=== PATIENT | male | born 1945 | race Caucasian/White ===

== ENCOUNTER 2025-06-21 14:59 | Observation (INO) | payer MEDICARE, OTHER ==
[~2025-06-21] VITALS: Ht 162.6 cm; Wt 92.4 kg
[2025-06-21 15:53] LABS: IMMATURE GRANULOCYTE ABSOLUTE 0.01 K/uL (0-1); NUCLEATED RED BLOOD CELLS 0.0 % (0.0-0.19); PLATELET COUNT (AUTO) 184 K/uL (130-400); RED BLOOD CELL COUNT(AUTO) 4.70 MIL/uL (4.50-6.20); RED CELL DISTRIBUTION WIDTH 13.8 % (11.0-15.5); WHITE BLOOD COUNT (AUTO) 5.3 K/uL (4.8-10.8)
[2025-06-21 15:55] LABS: APPEARANCE,URINE CLEAR (CLEAR); GLUCOSE, URINE (UA) NEGATIVE (NEGATIVE); LEUKOCYTE ESTERASE ,URINE NEGATIVE Leu/uL (NEGATIVE); NITRATE,URINE NEGATIVE (NEGATIVE); OCCULT BLOOD,URINE NEGATIVE (NEGATIVE)
[2025-06-21 15:56] LABS: ADD UA MICROSCOPIC NO
[2025-06-21 16:02] LABS: CREATININE 1.0 mg/dL (0.5-1.3); GLOMERULAR FILTR. RATE CALC 77.0 mL/min (>90); GLUCOSE,RANDOM 98.0 mg/dL (70-105); SODIUM SERUM 141.0 mmol/L (136-145); UREA NITROGEN, BLOOD 22.0 mg/dL (7-18)
--- NOTE | 2025-06-21 16:11 | HMCIMG ---
EXAM: CR Chest, 1 View. CLINICAL HISTORY: sob COMPARISON: None provided. FINDINGS: LUNGS: The lungs show no infiltrate or other acute finding. PLEURAL SPACES: No evidence of pleural effusion or pneumothorax. MEDIASTINUM: Cardiac size and mediastinal contours within normal limits. BONES: No acute osseous abnormality. IMPRESSION: No acute cardiopulmonary pathology is evident. /[place]
--- NOTE | 2025-06-21 16:51 | ERN ---
ED Note History of Present Illness Stated Complaint: ABN EKG Chief Complaint: Abnormal Labs Time Seen by MD: 15:03 Time Seen by Midlevel: 15:04 Dictation: 79 male coming in for abnormal EKGs from the [place]. Patient states he was told his heart rate was low. You did not isn't taking any beta blockers. Denies having any chest pain or chest discomfort. Denies having any dizziness or lightheadedness. Vital signs are stable. Allergies: Coded Allergies: fluvastatin (Unverified Allergy, Unknown, 06/21/25) simvastatin (Unverified Allergy, Unknown, 06/21/25) Past Medical History Past Medical History: Alcoholism, High Cholesterol, Hypertension Surgical History: Other Review of System Dictation Constitutional: Negative for fever,chills, and weight loss Eyes: Negative for injury, pain,redness, and discharge ENT: Negative for injury,pain or swelling Cardiovascular: Negative for chest pain, palpitations, and edema Respiratory: Negative for shortness of breath, cough, and wheezing, Abdomen/GI: Negative for abdominal pain, nausea, vomiting, diarrhea, and constipation Back: Negative for injury and pain : Negative for injury, bleeding and discharge MS/Extremity: Negative for injury and deformity Skin: Negative for rash, and discoloration Neuro: Negative for headache, weakness, numbness, tingling, and seizure Psych: Negative for suicide ideation, homicidal ideation, and hallucinations Review of Systems: was completed Initial Vital Sign VS Vital Signs Date Time Temp Pulse Resp B/P (MAP) Pulse Ox O2 Delivery O2 Flow Rate FiO2 06/21/25 15:01 98.1 47 16 156/63 96 Room Air 0 06/21/25 15:34 21 Physical Exam Dictation General: awake, alert, NAD Head/Face: Normocephalic, atraumatic Eyes: PERRL, EOMI, vision at baseline ENT: oral cavity clear, TMs clear, no signs of infection Neck: Trachea midline, supple, no nuchal rigidity Cardiovascular: Bradycardia Respiratory: CTAB, no respiratory distress, No rales or wheezes Abdomen: Soft, non-tender, non-distended, normal bowel sounds, no guarding or rebound. Skin: Warm, dry, normal turgor, no rash MS/Extremity: Pulses equal, no cyanosis, neurovascular intact, FROM Neuro: COAx4, GCS 15, strength 5/5, CN 2-12 intact, normal cerebellar exam, normal gait, Psych: Normal behavior, mood, and affect normal Results (Laboratory/Radiology) Laboratory/Radiology Laboratory Tests Test 06/21/25 15:12 06/21/25 15:44 Urine Color LIGHT-YELLOW (YELLOW) Urine Appearance CLEAR (CLEAR) Urine pH 5.5 (5.0-8.0) Urine Specific [place] 1.024 (1.001-1.031) Urine Protein NEGATIVE mg/dL (NEGATIVE) Urine Glucose (UA) NEGATIVE mg/dL (NEGATIVE) Urine Ketones NEGATIVE mg/dL (NEGATIVE) Urine Occult Blood NEGATIVE (NEGATIVE) Urine Nitrate NEGATIVE (NEGATIVE) Urine Bilirubin NEGATIVE mg/dL (NEGATIVE) Urine Urobilinogen 0.2 mg/dL (0.2-1.0) Urine Leukocyte Esterase NEGATIVE Jovani/uL White Blood Count 5.3 K/uL (4.8-10.8) Red Blood Count 4.70 MIL/uL (4.50-6.20) Hemoglobin 14.3 g/dL (14.0-18.0) Hematocrit 42.8 % (42-54) Mean Corpuscular Volume 91.1 fL (79-99) Mean Corpuscular Hemoglobin 30.4 pg (27.0-33.0) Mean Corpuscular Hemoglobin Concent 33.4 g/dL (32.0-36.0) Red Cell Distribution Width 13.8 % (11.0-15.5) Platelet Count 184 K/uL (130-400) Mean Platelet Volume 10.8 fL (7.5-10.5) H Immature Granulocyte % (Auto) 0.2 % (0-1) Neutrophils (%) (Auto) 48.6 % (40.0-77.0) Lymphocytes (%) (Auto) 34.4 % (21.0-51.0) Monocytes (%) (Auto) 13.9 % (3.0-13.0) H Eosinophils (%) (Auto) 2.5 % (0.0-8.0) Basophils (%) (Auto) 0.4 % (0.0-5.0) Neutrophils # (Auto) 2.6 K/uL (1.8-7.7) Lymphocytes # (Auto) 1.8 K/uL (1.0-4.8) Monocytes # (Auto) 0.7 K/uL (0.1-1.0) Eosinophils # (Auto) 0.13 K/uL (0.00-0.70) Basophils # (Auto) 0.02 K/uL (0.00-0.20) Absolute Immature Granulocyte (auto 0.01 K/uL (0-1) Nucleated Red Blood Cells 0.0 % (0.0-0.19) Sodium Level 141 mmol/L (136-145) Potassium Level 4.1 mmol/L (3.5-5.1) Chloride Level 105 mmol/L (101-111) Carbon Dioxide Level 28 mmol/L (21-32) Blood Urea Nitrogen 22 mg/dL (7-18) H Creatinine 1.0 mg/dL (0.5-1.3) Glomerular Filtration Rate Calc 77 mL/min (>90) Random Glucose 98 mg/dL (70-105) Total Calcium 8.8 mg/dL (8.5-10.1) Magnesium Level 2.00 mg/dL (1.80-2.40) Troponin I High Sensitivity 19 ng/L (4-75) Labs Reviewed?: Yes EKG Comment: EKGs was done at 2:59 p.m.. Rate of 64, sinus rhythm, ventricular tried gentleman, borderline prolonged [place]. No ST elevations, ER X-RAY Comment: [place] [id number] [address] IMAGING REPORT Signed PATIENT: DELANEY TAVARES MR#: [id number] : 1945 SEX: M AGE: 79 LOCATION: [facility] ORDER 09 STATUS: REG ER REPORT#: [id number] SERVICE [id number] REASON: sob ORDERING PHYSICIAN: FRED CHAVEZ CNP PROCEDURE: CXR1VW - CHEST 1VW EXAM: CR Chest, 1 View. CLINICAL HISTORY: sob COMPARISON: None provided. FINDINGS: LUNGS: The lungs show no infiltrate or other acute finding. PLEURAL SPACES: No evidence of pleural effusion or pneumothorax. MEDIASTINUM: Cardiac size and mediastinal contours within normal limits. BONES: No acute osseous abnormality. IMPRESSION: No acute cardiopulmonary pathology is evident. /[place] DICTATED BY: TANI KENNEDY MD DATE: 06/21/251708 ELECTRONICALLY SIGNED BY: TANI KENNEDY MD DATE: 06/21/251708 ED Course ED Course Orders Procedure Category Date Status Time Cbc With Differential LAB 06/21/25 Complete 15:09 Basic Metabolic Panel LAB 06/21/25 Complete 15:09 Urinalysis Profile LAB 06/21/25 Complete 15:09 Troponin I High LAB 06/21/25 Complete Sensitivity 15:09 12 Lead Ekg Tracing- EKG 06/21/25 Logged Technical 15:09 Chest 1vw RAD 06/21/25 Resulted 15:09 Magnesium LAB 06/21/25 Complete 16:04 Vital Signs Date Time Temp Pulse Resp B/P (MAP) Pulse Ox O2 Delivery O2 Flow Rate FiO2 06/21/25 15:34 98.6 67 18 148/69 95 Room Air* 0 21 06/21/25 15:01 98.1 47 16 156/63 96 Room Air 0 Medical Decision Making MDM MDM: 79 male [facility] Patient states he was told his heart rate was low. You did not isn't taking any beta blockers. Denies having any chest pain or chest discomfort. Denies having any dizziness or lightheadedness. Vital signs are stable. Blood work is unremarkable. Merrill oreilly will be admitted for bradycardia, ventricular trigeminy and be evaluated by Cardiology. Spoke to hospitalist team. Educated to admit. Differential diagnosis: Electrolyte abnormality, ACS, Rationale: Tests considered and ordered secondary to shared decision making include: labs, ECG and radiology Previous outside records reviewed: Old ER visits. Risk of complication and/or morbidity or mortality of patient management: None Medications-Per medication reconciliation Need for hospitalization: Patient does meet criteria for hospitalization. Need for emergency major/minor surgery: No There are no social concerns with this patient. Prescription drug management Prescriptions will include symptomatic care Patient's prior external medical records from other ER visits were reviewed by me as indicated. Prior testing and results from previous visits were reviewed. Prior tests were taken into account with medical decision making and resource utilization, independent historian/historians were used to obtain complete medical history. I independently interpreted the test that were performed, results were reviewed by me and considered findings on radiology if ordered. Medical management and examination interpretation discussions were had by me with other qualified healthcare professionals as indicated for the patient's care. DX & DISP Disposition: Inpatient Decision to Admit Date: Jun 21, 2025 Decision to Admit Time: 16:51 Departure Impression: Primary Impression: Ventricular trigeminy Additional Impression: Bradycardia Condition: Stable Referrals: SELF,REFERRAL (PCP) Time of Disposition: 16:51 I have reviewed the case, and I agree with, Diagnosis and Plan FRED CHAVEZ CNP Jun 21, 2025 16:51
--- NOTE | 2025-06-21 17:15 | HP ---
[facility] HISTORY AND PHYSICAL Date of Service: Jun 21, 2025 Time of Service: 17:15 HISTORY OF PRESENT ILLNESS: 79 Year old male with past medical history of hypertension, hyperlipidemia who presented to the hospital secondary to bradycardia. Patient states he went to see his primary care provider in [place] who was evaluating him for hypertension. He was noted to be bradycardic with heart rate in the 30s to 40s. He was thereafter sent to [facility] [place] further evaluation. He currently denies any chest pain, shortness of breath, abdominal pain, nausea, vomiting. Denied any palpitations. Denied any episodes of syncope with activity. Patient is fairly active at home and walks around. He denies any syncope while walking. Denied any dizziness, falls. Denied any chest pain with exertion. He had Previously seen Dr. Mack four years ago and had a stress test performed. Since then he has not followed up with Cardiology. When seen at bedside patient's heart rate was in the 50s to 60s. Labs in the ER were notable for 5.3, hemoglobin was 14.3, platelet count was 184 K, sodium was 141, potassium was 4.1, creatinine was 1.0 REVIEW OF SYSTEMS CONSTITUTIONAL: Denies fevers, chills, or night sweats. No unintentional weight loss reported. NEUROLOGICAL: Denies headache, amaurosis fugax, motor weakness, sensory deficit, vertigo/spinning sensation, gait abnormalities, or tremors. ENT: No hearing loss, otalgia, otorrhea, rhinitis, rhinorrhea, hoarseness, or sore throat. CARDIOVASCULAR: Denies any exertional angina, dyspnea on exertion, orthopnea, paroxysmal nocturnal dyspnea, palpitations, life-threatening arrhythmias, claudication. PULMONARY: Denies any shortness of breath, cough, phlegm/sputum, hemoptysis, pleuritic chest pain. SLEEP: Denies morning headaches, daytime somnolence or napping. Denies difficulty falling asleep, staying asleep, waking from sleep. Denies knowledge of snoring. GASTROINTESTINAL: Denies any type of dysphagia to either liquids or solids. Denies nausea, vomiting, pyrosis, early satiety, abdominal pain, diarrhea, constipation, or changes in stool consistency or caliber. Denies coffee-ground emesis, hematemesis, hematochezia, or melanotic stools. GENITOURINARY: Denies frequency, urgency, nocturia, hematuria or incontinence (Storage/Irritative symptoms.) Low urinary stream, straining to void, urinary intermittency or hesitancy, splitting of the voiding stream, terminal dribbling. ENDOCRINOLOGIC: Denies polyuria, polydipsia, polyphagia or heat/cold intolerances. HEMATOLOGIC: Denies thrombophilia/previous clots, or coagulopathy/bleeding disorders. ONCOLOGIC: Denies personal history of malignancy. DERMATOLOGIC: Denies rashes or pruritus. PSYCHIATRIC: Denies any suicidal or homicidal ideation. Denies hallucinations. PAST MEDICAL HISTORY: Hypertension, hypertension , history of alcohol PAST SURGICAL HISTORY: Denied any Surgical history PAST SOCIAL HISTORY: Denied any smoking. He states he drinks around 3-4 beers per week denied any drug use FAMILY HISTORY: Denied any pertinent family history Coded Allergies: fluvastatin (Unverified Allergy, Unknown, 06/21/25) simvastatin (Unverified Allergy, Unknown, 06/21/25) PHYSICAL EXAM GENERAL APPEARANCE: The patient is awake, alert, and oriented, in no acute cardiopulmonary distress. NEUROLOGICAL: Cranial nerves II-XII grossly intact. Motor is 5/5 in bilateral upper and lower extremities proximal to distal. No sensory deficits. HEENT: Face is symmetric. Pupils are equal and reactive. Extraocular movements are intact. NECK: Supple. No JVD. No thyromegaly. No submental, submandibular, pre- /postauricular, occipital or supraclavicular lymphadenopathy. CHEST: Normal chest expansion. No Telemetry. LUNGS: Absence of any rales, rhonchi or any wheezing. CARDIOVASCULAR: Regular. S1 and S2 normal. No appreciable rubs, murmurs or gallops. ABDOMEN: Soft, nontender, and nondistended. There is no rebound, voluntary guarding, or rigidity. : Deferred. No Church. EXTREMITIES: Non-edematous and not cyanotic. No clubbing. Good capillary refill. SKIN: No skin breakdown. Vital Sign (Last 24 Hours) 06/21/25 15:34 Temp 98.6 Pulse 67 Resp 18 B/P (MAP) 148/69 Pulse Ox 95 O2 Delivery Room Air* O2 Flow Rate 0 FiO2 21 LABS: Laboratory: Test 06/21/25 15:44 06/21/25 15:12 Range/Units White Blood Count 5.3 4.8-10.8 K/uL Red Blood Count 4.70 4.50-6.20 MIL/uL Hemoglobin 14.3 14.0-18.0 g/dL Hematocrit 42.8 42-54 % Mean Corpuscular Volume 91.1 79-99 fL Mean Corpuscular Hemoglobin 30.4 27.0-33.0 pg Mean Corpuscular Hemoglobin Concent 33.4 32.0-36.0 g/dL Red Cell Distribution Width 13.8 11.0-15.5 % Platelet Count 184 130-400 K/uL Mean Platelet Volume 10.8 H 7.5-10.5 fL Immature Granulocyte % (Auto) 0.2 0-1 % Neutrophils (%) (Auto) 48.6 40.0-77.0 % Lymphocytes (%) (Auto) 34.4 21.0-51.0 % Monocytes (%) (Auto) 13.9 H 3.0-13.0 % Eosinophils (%) (Auto) 2.5 0.0-8.0 % Basophils (%) (Auto) 0.4 0.0-5.0 % Neutrophils # (Auto) 2.6 1.8-7.7 K/uL Lymphocytes # (Auto) 1.8 1.0-4.8 K/uL Monocytes # (Auto) 0.7 0.1-1.0 K/uL Eosinophils # (Auto) 0.13 0.00-0.70 K/uL Basophils # (Auto) 0.02 0.00-0.20 K/uL Absolute Immature Granulocyte (auto 0.01 0-1 K/uL Nucleated Red Blood Cells 0.0 0.0-0.19 % Sodium Level 141 136-145 mmol/L Potassium Level 4.1 3.5-5.1 mmol/L Chloride Level 105 101-111 mmol/L Carbon Dioxide Level 28 21-32 mmol/L Blood Urea Nitrogen 22 H 7-18 mg/dL Creatinine 1.0 0.5-1.3 mg/dL Glomerular Filtration Rate Calc 77 >90 mL/min Random Glucose 98 70-105 mg/dL Total Calcium 8.8 8.5-10.1 mg/dL Magnesium Level 2.00 1.80-2.40 mg/dL Troponin I High Sensitivity 19 4-75 ng/L Urine Color LIGHT-YELLOW YELLOW Urine Appearance CLEAR CLEAR Urine pH 5.5 5.0-8.0 Urine Specific [place] 1.024 1.001-1.031 Urine Protein NEGATIVE NEGATIVE mg/dL Urine Glucose (UA) NEGATIVE NEGATIVE mg/dL Urine Ketones NEGATIVE NEGATIVE mg/dL Urine Occult Blood NEGATIVE NEGATIVE Urine Nitrate NEGATIVE NEGATIVE Urine Bilirubin NEGATIVE NEGATIVE mg/dL Urine Urobilinogen 0.2 0.2-1.0 mg/dL Urine Leukocyte Esterase NEGATIVE NEGATIVE Jovani/uL DIAGNOSTICS / RADIOLOGY: [ ] ASSESSMENT: Sinus rhythm with frequent PVCs (trigeminy) Hypertension Hyperlipidemia History of sleep apnea History of alcohol use PLAN: -patient to be admitted to [facility] -in reference to frequent PVCs. Patient to be monitored on telemetry. Obtain echocardiogram. Keep potassium greater than four and magnesium greater than two. The patient currently does not have any chest pain. We will request consultation with Cardiology. Check TSH. -obtain patient's home medications which will be reconciled once available -continue patient on home CPAP -further orders per hospitalization course. Advanced Care Planning Which of the following were discussed: Hospice care: Yes __ No _x_ Therapeutic options: Yes __ No __ Advance directives: Yes __ No __ Other discussions: Discussed with who?: patient (Patient, family or surrogates) Voluntary nature of this service was explained to the patient? Yes _x_ No __ Amount of time spent: 25 minutes KATINA Newman MD, MD Jun 21, 2025 17:15
[2025-06-21] MEDS ORDERED: PoTASSium chloRIDE 20MEQ ER 20 MEQ ERTAB PO PRN (17:30)
[2025-06-21] MEDS ORDERED: MAGNESIUM 2GM PREMIX 50ML 50 ML IV PRN (17:30)
[2025-06-21] MEDS ORDERED: PoTASSium chl 10% ELIXIR 20MEQ 20 MEQ/15 ML UDCUP PO PRN (17:30)
--- NOTE | 2025-06-21 18:06 | EKG ---
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
--- NOTE | 2025-06-21 18:12 | CONS ---
[facility] CARDIOLOGY CONSULTATION NOTE Date Patient Seen: Jun 21, 2025 Time of Visit: 18:09 Reason for Consultation: [ bradycardia, PVCs] History of Present Illness: [ 79 Year old male with past medical history of hypertension, hyperlipidemia who presented to the hospital secondary to bradycardia. Patient states he went to see his primary care provider in [place] who was evaluating him for hypertension. He was noted to be bradycardic with heart rate in the 30s to 40s. However, patient is noted to have frequent PVCs as well so pulse oximeter readings may underestimate the true pulse. He currently denies any chest pain, shortness of breath, abdominal pain, nausea, vomiting. Denied any palpitations. Denied any episodes of syncope with activity. Patient is fairly active at home and walks around. He denies any syncope while walking. Denied any dizziness, falls. Denied any chest pain with exertion. He had Previously seen Dr. Mack four years ago and had a stress test performed. Since then he has not followed up with Cardiology. When seen at bedside patient's heart rate was in the 50s to 60s. Labs in the ER were notable for 5.3, hemoglobin was 14.3, platelet count was 184 K, sodium was 141, potassium was 4.1, creatinine was 1.0 ] Past Medical History: [ ] Past Surgical History: [ ] Family History: [ ] Social History: [ ] Habits: [Never] smoker. [Denies] alcohol consumption. [Denies] illicit drug use Home Meds: [ ] Current Meds: [ ] Review of Systems: CONST: [No fever, fatigue, or weight changes.] EYES: [No recent vision problems.] ENT: [No congestion, ear pain, or sore throat.] C/V: [No chest pain, palpitations, or edema.] RESP: [No cough, congestion, wheezing or shortness of breath.] GI: [No abdominal pain, nausea, vomiting, constipation, or diarrhea.] : [No incontinence or dysuria.] SKIN: [No rash.] NEURO: [No headache, focal numbness or weakness, dizziness, or seizures.] PSYCH: [No depression or anxiety.] HEME: [No abnormal bruising or bleeding.] LYMPH: [No swollen glands.] Physical Examination: GENERAL: [No acute distress.] HEAD: [Normal with no signs of head trauma.] EYES: [PERRLA, EOMI, conjunctiva and sclera normal.] ENT: [Hearing grossly intact, normal oropharynx.] NECK: [Supple without JVD. There is no tenderness, lymphadenopathy, or masses. No thyromegaly. Normal carotid upstrokes without bruits.] LUNGS: [Clear breath sounds bilaterally. There are right basilar rales one third of the way up the chest. No wheezes, or rhonchi.] HEART: [Normal rate and rhythm. Normal S1 and S2 without mumurs, gallop or rub.] VASC: [Peripheral pulses +2 bilaterally.] ABD: [Bowel sounds normal, soft, nontender, no masses, no organomegaly. No audible bruits.] : [Not examined] LYMPH: [No lymphadenopathy noted.] EXT: [No clubbing, cyanosis or edema.] SKIN: [No rashes or lesions noted.] NEURO: [Awake, alert, and oriented x3. No focal sensory or strength deficits noted.] Vital Signs (last 8hr) Date Time Temp Pulse Resp B/P (MAP) Pulse Ox O2 Delivery O2 Flow Rate FiO2 06/21/25 17:59 98.6 66 18 139/88 96 Room Air* 0 21 06/21/25 15:34 98.6 67 18 148/69 95 Room Air* 0 21 06/21/25 15:01 98.1 47 16 156/63 96 Room Air 0 Laboratory: [ ] Hematology Labs: Test 06/21/25 15:44 Range/Units White Blood Count 5.3 4.8-10.8 K/uL Red Blood Count 4.70 4.50-6.20 MIL/uL Hemoglobin 14.3 14.0-18.0 g/dL Hematocrit 42.8 42-54 % Mean Corpuscular Volume 91.1 79-99 fL Mean Corpuscular Hemoglobin 30.4 27.0-33.0 pg Mean Corpuscular Hemoglobin Concent 33.4 32.0-36.0 g/dL Red Cell Distribution Width 13.8 11.0-15.5 % Platelet Count 184 130-400 K/uL Mean Platelet Volume 10.8 H 7.5-10.5 fL Immature Granulocyte % (Auto) 0.2 0-1 % Neutrophils (%) (Auto) 48.6 40.0-77.0 % Lymphocytes (%) (Auto) 34.4 21.0-51.0 % Monocytes (%) (Auto) 13.9 H 3.0-13.0 % Eosinophils (%) (Auto) 2.5 0.0-8.0 % Basophils (%) (Auto) 0.4 0.0-5.0 % Neutrophils # (Auto) 2.6 1.8-7.7 K/uL Lymphocytes # (Auto) 1.8 1.0-4.8 K/uL Monocytes # (Auto) 0.7 0.1-1.0 K/uL Eosinophils # (Auto) 0.13 0.00-0.70 K/uL Basophils # (Auto) 0.02 0.00-0.20 K/uL Absolute Immature Granulocyte (auto 0.01 0-1 K/uL Nucleated Red Blood Cells 0.0 0.0-0.19 % Chemistry Labs: Test 06/21/25 15:44 Range/Units Sodium Level 141 136-145 mmol/L Potassium Level 4.1 3.5-5.1 mmol/L Chloride Level 105 101-111 mmol/L Carbon Dioxide Level 28 21-32 mmol/L Blood Urea Nitrogen 22 H 7-18 mg/dL Creatinine 1.0 0.5-1.3 mg/dL Glomerular Filtration Rate Calc 77 >90 mL/min Random Glucose 98 70-105 mg/dL Hemoglobin A1c 5.7 4.0-6.0 % Estimated Average Glucose (eAG) 117 70-126 mg/dL Total Calcium 8.8 8.5-10.1 mg/dL Magnesium Level 2.00 1.80-2.40 mg/dL Troponin I High Sensitivity 19 4-75 ng/L Thyroid Stimulating Hormone (TSH) 4.09 H 0.36-3.74 uIU/mL Diagnostics / Radiology: [Copy/Paste Echos/Imaging Report here] Assessment: [#PVCs #Bradycardia -plan for K>4, Mg>2 -echo ordered -tele ordered -Trop neg -TSH high, sent for Free T4, Free T3 ] FORREST ESCOBAR MD Jun 21, 2025 18:12
[2025-06-21] MEDS: FAMOTIDINE 20MG VIAL IV SCH (20:33)
[2025-06-21] MEDS ORDERED: SALM1CAP3 PO (23:30)
[2025-06-21] MEDS ORDERED: AMLO-257 PO (23:30)
[2025-06-21] MEDS ORDERED: TOPI-257 PO ×2 (23:30→23:32)
[2025-06-21] MEDS ORDERED: ASPI-1197 PO (23:30)
[2025-06-21] MEDS ORDERED: CHOL500051 PO (23:30)
[2025-06-21] MEDS ORDERED: ATOR10 PO (23:30)
[2025-06-21 23:50] VITALS: BP 140/72; PULSE 48; RESP 14; RESP 18; TEMP 98; O2SAT 96
[2025-06-22 02:41] VITALS: PULSE 50; RESP 18; O2SAT 96
[2025-06-22 03:34] VITALS: O2SAT 96
[2025-06-22 04:26] VITALS: BP 133/69; PULSE 47; RESP 18; TEMP 97.9
[2025-06-22 06:45] LABS: IMMATURE GRANULOCYTE ABSOLUTE 0.01 K/uL (0-1); NUCLEATED RED BLOOD CELLS 0.0 % (0.0-0.19); PLATELET COUNT (AUTO) 176 K/uL (130-400); RED BLOOD CELL COUNT(AUTO) 4.61 MIL/uL (4.50-6.20); RED CELL DISTRIBUTION WIDTH 13.8 % (11.0-15.5); WHITE BLOOD COUNT (AUTO) 5.3 K/uL (4.8-10.8)
[2025-06-22 06:56] LABS: CREATININE 1.0 mg/dL (0.5-1.3); GLOMERULAR FILTR. RATE CALC 77.0 mL/min (>90); GLUCOSE,RANDOM 90.0 mg/dL (70-105); SODIUM SERUM 140.0 mmol/L (136-145); UREA NITROGEN, BLOOD 18.0 mg/dL (7-18)
--- NOTE | 2025-06-22 07:17 | PN ---
[facility] CARDIOLOGY PROGRESS NOTE Date Patient Seen: Jun 22, 2025 Time of Visit: 07:15 Interval History: [ Frequent PVCs in trigeminy pattern HR 48-60 bpm] Physical Examination: GENERAL: [No acute distress.] HEAD: [Normal with no signs of head trauma.] EYES: [PERRLA, EOMI, conjunctiva and sclera normal.] ENT: [Hearing grossly intact, normal oropharynx.] NECK: [Supple without JVD. There is no tenderness, lymphadenopathy, or masses. No thyromegaly. Normal carotid upstrokes without bruits.] LUNGS: [Clear breath sounds bilaterally. There are right basilar rales one third of the way up the chest. No wheezes, or rhonchi.] HEART: [Normal rate and rhythm. Normal S1 and S2 without mumurs, gallop or rub.] VASC: [Peripheral pulses +2 bilaterally.] ABD: [Bowel sounds normal, soft, nontender, no masses, no organomegaly. No audible bruits.] : [Not examined] LYMPH: [No lymphadenopathy noted.] EXT: [No clubbing, cyanosis or edema.] SKIN: [No rashes or lesions noted.] NEURO: [Awake, alert, and oriented x3. No focal sensory or strength deficits noted.] Laboratory: [ ] Hematology Labs: Test 06/22/25 06:38 Range/Units White Blood Count 5.3 4.8-10.8 K/uL Red Blood Count 4.61 4.50-6.20 MIL/uL Hemoglobin 14.0 14.0-18.0 g/dL Hematocrit 42.0 42-54 % Mean Corpuscular Volume 91.1 79-99 fL Mean Corpuscular Hemoglobin 30.4 27.0-33.0 pg Mean Corpuscular Hemoglobin Concent 33.3 32.0-36.0 g/dL Red Cell Distribution Width 13.8 11.0-15.5 % Platelet Count 176 130-400 K/uL Mean Platelet Volume 10.7 H 7.5-10.5 fL Immature Granulocyte % (Auto) 0.2 0-1 % Neutrophils (%) (Auto) 58.8 40.0-77.0 % Lymphocytes (%) (Auto) 27.5 21.0-51.0 % Monocytes (%) (Auto) 10.4 3.0-13.0 % Eosinophils (%) (Auto) 2.5 0.0-8.0 % Basophils (%) (Auto) 0.6 0.0-5.0 % Neutrophils # (Auto) 3.1 1.8-7.7 K/uL Lymphocytes # (Auto) 1.5 1.0-4.8 K/uL Monocytes # (Auto) 0.6 0.1-1.0 K/uL Eosinophils # (Auto) 0.13 0.00-0.70 K/uL Basophils # (Auto) 0.03 0.00-0.20 K/uL Absolute Immature Granulocyte (auto 0.01 0-1 K/uL Nucleated Red Blood Cells 0.0 0.0-0.19 % Chemistry Labs: Test 06/22/25 06:38 06/21/25 15:44 Range/Units Sodium Level 140 136-145 mmol/L Potassium Level 4.0 3.5-5.1 mmol/L Chloride Level 105 101-111 mmol/L Carbon Dioxide Level 29 21-32 mmol/L Blood Urea Nitrogen 18 7-18 mg/dL Creatinine 1.0 0.5-1.3 mg/dL Glomerular Filtration Rate Calc 77 >90 mL/min Random Glucose 90 70-105 mg/dL Total Calcium 8.7 8.5-10.1 mg/dL Hemoglobin A1c 5.7 4.0-6.0 % Estimated Average Glucose (eAG) 117 70-126 mg/dL Magnesium Level 2.00 1.80-2.40 mg/dL Troponin I High Sensitivity 19 4-75 ng/L Thyroid Stimulating Hormone (TSH) 4.09 H 0.36-3.74 uIU/mL Free Thyroxine (T4) Direct 0.79 0.76-1.46 ng/dL Free Triiodothyronine (T3) pg/mL 2.40 2.18-3.98 pg/mL Diagnostics / Radiology: [Copy/Paste Echos/Imaging Report here] Impression and Plan: [ #PVCs #Bradycardia, asymptomatic -plan for K>4, Mg>2 -echo ordered -tele ordered. PVCs, trigeminy HR 48-62 bpm -Trop neg -TSH high, normal Free T4, Free T3 -plan for outpatient heart monitor to determine PVC burden if echo is benign -Reports normal C four years ago with Dr Mack ] FORREST ESCOBRA MD Jun 22, 2025 07:17
[2025-06-22 07:59] VITALS: BP 136/65; PULSE 49; RESP 18; TEMP 97.8
[2025-06-22 08:00] VITALS: O2SAT 96
--- NOTE | 2025-06-22 09:16 | HMCSR ---
APPROVED REPORT EXAM: Two-dimensional and M-mode echocardiogram with Doppler and color Doppler. INDICATION ICD: I49.3 Premature ventricular complexes 2D Dimensions RVDd 4.5 cm LVEF(%) 66.0 (>50%) LVED Vol(simp.) 114.0 mL IVSd 1.1 (0.7-1.1cm) FS(%) 36 % LVES Vol(simp.) 50.0 mL LVDd 5.0 (3.8-5.6cm) LA (2D) 4.8 (1.6-4.0cm) LVEF(%, simp.) 56 % PWd 0.9 (0.7-1.1cm) Ao Root(2D) 3.8 (2.0-3.7cm) LA ESV INDEX (BP) 55.24 mL/m2 IVSs 1.5 cm LVOT diam 2.1 (1.8-2.4cm) LVDs 3.2 (2.5-4.0cm) PWs 1.5 cm Deformation Strain Apical 4 -11.0 % Apical 2 -12.1 % Apical 3 -14.4 % Global Strain -12.5 % M-Mode Dimensions EPSS 1.1 cm LA (MM) 4.6 (1.6-4.0cm) Ao Root(MM) 3.3 (2.0-3.7cm) Aortic Valve AoV Vmax 1.4 m/s Ao Peak GR 7.8 mmHg LVOT Vmax 1.1 m/s AoV VTI 0.3 m Ao Mean GR 4.0 mmHg LVOT VTI 0.26 m CONCEPCION (VMAX) 2.82 cm2 CONCEPCION (VTI) 2.9 cm2 Mitral Valve MV E Vmax 76.7 cm/s DECEL Time 222 ms MV A Vmax 59.7 cm/s P 1/2 T 69 ms E/A ratio 1.3 MVA (PHT) 3.2 cm2 TDI E/E' Medial 13.2 E/E' Lateral 8.6 Medial E' Peak V 5.80 cm/s Lateral E' Peak V 8.91 cm/s Pulmonary Valve PV Vmax 0.8 m/s PI End Deanna. Abram 112.8 cm/s PV Mean GR 1.3 mmHg PV Peak GR 2.4 mmHg Tricuspid Valve TR Vmax 2.7 m/s RAP (EST) 8 mmHg RVSP 36.9 mmHg TR Peak GR 28.9 mmHg Left Ventricle The left ventricle is normal size. GLS -13.0% There is normal left ventricular wall thickness. The LVEF is > 55%. The LV diastolic function was unable to be assessed due to atrial arrhythmia. Right Ventricle The right ventricle is moderately dilated. The right ventricular systolic function is normal. Atria The left atrium is severely dilated. LASVI 55mL/m The right atrium is borderline dilated. Aortic Valve The aortic valve is trileaflet normal in structure. No aortic regurgitation is present. There is no aortic valvular stenosis. Mitral Valve The mitral valve is normal in structure. There is no mitral valve regurgitation noted. There is no mitral valve stenosis. Tricuspid Valve The tricuspid valve is normal in structure. There is mild to moderate tricuspid valve regurgitation noted. Pulmonic Valve The pulmonary valve is normal in structure. There is trace of pulmonic valvular regurgitation. Great Vessels The aortic root is normal in size. IVC is not well visualized. Pericardium There is no pericardial effusion. Other Information Quality : Adequate Conclusion The left ventricle is normal size. The LVEF is > 55%. The LV diastolic function was unable to be assessed due to atrial arrhythmia. The right ventricle is moderately dilated. The right ventricular systolic function is normal. The left atrium is severely dilated. LASVI 55mL/m The right atrium is borderline dilated. No valvular pathology. There is no pericardial effusion.
[2025-06-22 12:26] VITALS: BP 139/67; PULSE 62; RESP 18; TEMP 97.6
--- NOTE | 2025-06-22 14:19 | DS ---
Discharge Summary Hospital Course Summary: Patient is a 79-year-old male with past medical history of hypertension hyperlipidemia who presented for evaluation of bradycardia after being found to have heart rates in 30s to 40s during a primary care visit. Chest pain, shortness of breath, palpitations, dizziness, syncope, falls, or exertional symptoms. He reports being active at home and ambulatory without limitations. He previously saw a cardiologist4 years ago but has not followed up since then. On arrival, he remained hemodynamically stable and asymptomatic. Cardiology was consulted and evaluation revealed frequent PVCs with trigeminy pattern. An echocardiogram was performed and showed no acute abnormalities. Cardiology determined the patient was stable for discharge and recommended outpatient cardiology follow up to assess PVC burden and further management. The patient was discharged home in stable condition with instruction to monitor for worsening symptoms and to attend scheduled outpatient appointment with Cardiology in 1-2 days. Unit Educator(s): CONSULTATION REPORT Name: DELANEY TAVARES Ismael Acct: [id number] MR: [id number] : 1945 Admit Date: 06/21/25 FORREST ESCOBAR MD [address] [address] [facility] CARDIOLOGY CONSULTATION NOTE Date Patient Seen: Jun 21, 2025 Time of Visit: 18:09 Reason for Consultation: [ bradycardia, PVCs] History of Present Illness: [ 79 Year old male with past medical history of hypertension, hyperlipidemia who presented to the hospital secondary to bradycardia. Patient states he went to see his primary care provider in [place] who was evaluating him for hypertension. He was noted to be bradycardic with heart rate in the 30s to 40s. However, patient is noted to have frequent PVCs as well so pulse oximeter readings may underestimate the true pulse. He currently denies any chest pain, shortness of breath, abdominal pain, nausea, vomiting. Denied any palpitations. Denied any episodes of syncope with activity. Patient is fairly active at home and walks around. He denies any syncope while walking. Denied any dizziness, falls. Denied any chest pain with exertion. He had Previously seen Dr. Mack four years ago and had a stress test performed. Since then he has not followed up with Cardiology. When seen at bedside patient's heart rate was in the 50s to 60s. Labs in the ER were notable for 5.3, hemoglobin was 14.3, platelet count was 184 K, sodium was 141, potassium was 4.1, creatinine was 1.0 ] Past Medical History: [ ] Past Surgical History: [ ] Family History: [ ] Social History: [ ] Habits: [Never] smoker. [Denies] alcohol consumption. [Denies] illicit drug use Home Meds: [ ] Current Meds: [ ] Review of Systems: CONST: [No fever, fatigue, or weight changes.] EYES: [No recent vision problems.] ENT: [No congestion, ear pain, or sore throat.] C/V: [No chest pain, palpitations, or edema.] RESP: [No cough, congestion, wheezing or shortness of breath.] GI: [No abdominal pain, nausea, vomiting, constipation, or diarrhea.] : [No incontinence or dysuria.] SKIN: [No rash.] NEURO: [No headache, focal numbness or weakness, dizziness, or seizures.] PSYCH: [No depression or anxiety.] HEME: [No abnormal bruising or bleeding.] LYMPH: [No swollen glands.] Physical Examination: GENERAL: [No acute distress.] HEAD: [Normal with no signs of head trauma.] EYES: [PERRLA, EOMI, conjunctiva and sclera normal.] ENT: [Hearing grossly intact, normal oropharynx.] NECK: [Supple without JVD. There is no tenderness, lymphadenopathy, or masses. No thyromegaly. Normal carotid upstrokes without bruits.] LUNGS: [Clear breath sounds bilaterally. There are right basilar rales one third of the way up the chest. No wheezes, or rhonchi.] HEART: [Normal rate and rhythm. Normal S1 and S2 without mumurs, gallop or rub.] VASC: [Peripheral pulses +2 bilaterally.] ABD: [Bowel sounds normal, soft, nontender, no masses, no organomegaly. No audible bruits.] : [Not examined] LYMPH: [No lymphadenopathy noted.] EXT: [No clubbing, cyanosis or edema.] SKIN: [No rashes or lesions noted.] NEURO: [Awake, alert, and oriented x3. No focal sensory or strength deficits noted.] Vital Signs (last 8hr) Date Time Temp Pulse Resp B/P (MAP) Pulse Ox O2 Delivery O2 Flow Rate FiO2 11/20/25 17:59 98.6 66 18 139/88 96 Room Air* 0 21 06/21/25 15:34 98.6 67 18 148/69 95 Room Air* 0 21 06/21/25 15:01 98.1 47 16 156/63 96 Room Air 0 Laboratory: [ ] Hematology Labs: Test 06/21/25 15:44 Range/Units White Blood Count 5.3 4.8-10.8 K/uL Red Blood Count 4.70 4.50-6.20 MIL/uL Hemoglobin 14.3 14.0-18.0 g/dL Hematocrit 42.8 42-54 % Mean Corpuscular Volume 91.1 79-99 fL Mean Corpuscular Hemoglobin 30.4 27.0-33.0 pg Mean Corpuscular Hemoglobin Concent 33.4 32.0-36.0 g/dL Red Cell Distribution Width 13.8 11.0-15.5 % Platelet Count 184 130-400 K/uL Mean Platelet Volume 10.8 H 7.5-10.5 fL Immature Granulocyte % (Auto) 0.2 0-1 % Neutrophils (%) (Auto) 48.6 40.0-77.0 % Lymphocytes (%) (Auto) 34.4 21.0-51.0 % Monocytes (%) (Auto) 13.9 H 3.0-13.0 % Eosinophils (%) (Auto) 2.5 0.0-8.0 % Basophils (%) (Auto) 0.4 0.0-5.0 % Neutrophils # (Auto) 2.6 1.8-7.7 K/uL Lymphocytes # (Auto) 1.8 1.0-4.8 K/uL Monocytes # (Auto) 0.7 0.1-1.0 K/uL Eosinophils # (Auto) 0.13 0.00-0.70 K/uL Basophils # (Auto) 0.02 0.00-0.20 K/uL Absolute Immature Granulocyte (auto 0.01 0-1 K/uL Nucleated Red Blood Cells 0.0 0.0-0.19 % Chemistry Labs: Test 06/21/25 15:44 Range/Units Sodium Level 141 136-145 mmol/L Potassium Level 4.1 3.5-5.1 mmol/L Chloride Level 105 101-111 mmol/L Carbon Dioxide Level 28 21-32 mmol/L Blood Urea Nitrogen 22 H 7-18 mg/dL Creatinine 1.0 0.5-1.3 mg/dL Glomerular Filtration Rate Calc 77 >90 mL/min Random Glucose 98 70-105 mg/dL Hemoglobin A1c 5.7 4.0-6.0 % Estimated Average Glucose (eAG) 117 70-126 mg/dL Total Calcium 8.8 8.5-10.1 mg/dL Magnesium Level 2.00 1.80-2.40 mg/dL Troponin I High Sensitivity 19 4-75 ng/L Thyroid Stimulating Hormone (TSH) 4.09 H 0.36-3.74 uIU/mL Diagnostics / Radiology: [Copy/Paste Echos/Imaging Report here] Assessment: [#PVCs #Bradycardia -plan for K>4, Mg>2 -echo ordered -tele ordered -Trop neg -TSH high, sent for Free T4, Free T3 ] FORREST ESCOBAR MD Jun 21, 2025 18:12 Electronically Signed by: FORREST ESCOBAR MD06/21/25 181 Electronically Co-Signed by: Procedure(s): [place] [address] IMAGING REPORT Signed PATIENT: DELANEY TAVARES MR#: [id number] : 1945 SEX: M AGE: 79 LOCATION: [facility] ORDER 1510 STATUS: REG REPORT#: [id number] SERVICE 1509 REASON: sob ORDERING PHYSICIAN: FRED CHAVEZ CNP PROCEDURE: CXR1VW - CHEST 1VW EXAM: CR Chest, 1 View. CLINICAL HISTORY: sob COMPARISON: None provided. FINDINGS: LUNGS: The lungs show no infiltrate or other acute finding. PLEURAL SPACES: No evidence of pleural effusion or pneumothorax. MEDIASTINUM: Cardiac size and mediastinal contours within normal limits. BONES: No acute osseous abnormality. IMPRESSION: No acute cardiopulmonary pathology is evident. /[place] DICTATED BY: TANI KENNEDY MD DATE: 06/21/25 234 ELECTRONICALLY SIGNED BY: TANI KENNEDY MD DATE: 06/21/251708 [place] [id number] [place] [id number] IMAGING REPORT Signed PATIENT: DELANEY TAVARES MR#: [id number] : 1945 SEX: M AGE: 79 LOCATION: [facility] ORDER 14 STATUS: ADM IN REPORT#: [id number] SERVICE 0000 REASON: PVC's, bradycardia ORDERING PHYSICIAN: KATINA PERRY MD PROCEDURE: ECHO CMP - ECHO 2-D COMPLETE APPROVED REPORT EXAM: Two-dimensional and M-mode echocardiogram with Doppler and color Doppler. INDICATION ICD: I49.3 Premature ventricular complexes 2D Dimensions RVDd 4.5 cm LVEF(%) 66.0 (>50%) LVED Vol(simp.) 114.0 mL IVSd 1.1 (0.7-1.1cm) FS(%) 36 % LVES Vol(simp.) 50.0 mL LVDd 5.0 (3.8-5.6cm) LA (2D) 4.8 (1.6-4.0cm) LVEF(%, simp.) 56 % PWd 0.9 (0.7-1.1cm) Ao Root(2D) 3.8 (2.0-3.7cm) LA ESV INDEX (BP) 55.24 mL/m2 IVSs 1.5 cm LVOT diam 2.1 (1.8-2.4cm) LVDs 3.2 (2.5-4.0cm) PWs 1.5 cm Deformation Strain Apical 4 -11.0 % Apical 2 -12.1 % Apical 3 -14.4 % Global Strain -12.5 % M-Mode Dimensions EPSS 1.1 cm LA (MM) 4.6 (1.6-4.0cm) Ao Root(MM) 3.3 (2.0-3.7cm) Aortic Valve AoV Vmax 1.4 m/s Ao Peak GR 7.8 mmHg LVOT Vmax 1.1 m/s AoV VTI 0.3 m Ao Mean GR 4.0 mmHg LVOT VTI 0.26 m CONCEPCION (VMAX) 2.82 cm2 CONCEPCION (VTI) 2.9 cm2 Mitral Valve MV E Vmax 76.7 cm/s DECEL Time 222 ms MV A Vmax 59.7 cm/s P 1/2 T 69 ms E/A ratio 1.3 MVA (PHT) 3.2 cm2 TDI E/E' Medial 13.2 E/E' Lateral 8.6 Medial E' Peak V 5.80 cm/s Lateral E' Peak V 8.91 cm/s Pulmonary Valve PV Vmax 0.8 m/s PI End Deanna. Abram 112.8 cm/s PV Mean GR 1.3 mmHg PV Peak GR 2.4 mmHg Tricuspid Valve TR Vmax 2.7 m/s RAP (EST) 8 mmHg RVSP 36.9 mmHg TR Peak GR 28.9 mmHg Left Ventricle The left ventricle is normal size. GLS -13.0% There is normal left ventricular wall thickness. The LVEF is > 55%. The LV diastolic function was unable to be assessed due to atrial arrhythmia. Right Ventricle The right ventricle is moderately dilated. The right ventricular systolic funct ion is normal. Atria The left atrium is severely dilated. LASVI 55mL/m The right atrium is borderline dilated. Aortic Valve The aortic valve is trileaflet normal in structure. No aortic regurgitation is present. There is no aortic valvular stenosis. Mitral Valve The mitral valve is normal in structure. There is no mitral valve regurgitation noted. There is no mitral valve stenosis. Tricuspid Valve The tricuspid valve is normal in structure. There is mild to moderate tricuspid valve regurgitation noted. Pulmonic Valve The pulmonary valve is normal in structure. There is trace of pulmonic valvular regurgitation. Great Vessels The aortic root is normal in size. IVC is not well visualized. Pericardium There is no pericardial effusion. Other Information Quality : Adequate Conclusion The left ventricle is normal size. The LVEF is > 55%. The LV diastolic function was unable to be assessed due to atrial arrhythmia. The right ventricle is moderately dilated. The right ventricular systolic function is normal. The left atrium is severely dilated. LASVI 55mL/m The right atrium is borderline dilated. No valvular pathology. There is no pericardial effusion. DICTATED BY: FORREST ESCOBAR MD DATE: 06/22/25814 ELECTRONICALLY SIGNED BY: FORREST ESCOBAR MD DATE: 06/22/25915 Assessment/Plan: ASSESSMENT: Sinus rhythm with frequent PVCs (trigeminy) Hypertension Hyperlipidemia History of sleep apnea History of alcohol use Discharge Instructions: Monitor your blood pressure daily, take hypertension medications consistently, and follow a low-salt, heart healthy diet. Use your CPAP, BiPAP [place] every night as directed to help control sleep apnea and reduced cardiac strain. Avoid caffeine, alcohol, tobacco, and stimulants, as these can increase PVC frequency. Keep all follow up appointments with cardiology and primary care for rhythm monitoring and blood pressure management. Return to ER if any: New or worsening chest pain, severe palpitations, dizziness, fainting, or shortness of breath. 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 Follow up with your PCP in 1-2 weeks. Home Medications: Reported Medications Topiramate (Topiramate) 25 Mg Tablet, 4 TAB PO DAILY for 30 Days, #30 TAB 0 Refills 06/21/25 Cholecalciferol (Vitamin D3) (Vitamin D3) 125 Mcg (5000 Unit) Capsule, 1 CAP PO DAILY for 30 Days, #30 CAP 0 Refills 06/21/25 [place] Oil/Riley-3 Fatty Acids (Sv [place] Oil 1,000 mg Softgel) 1,000 Mg-210 Mg Capsule, 2 EACH PO DAILY, CAP 06/21/25 Amlodipine Besylate (Amlodipine Besylate) 5 Mg Tablet, 1 TAB PO DAILY for 30 Days, #30 TAB 0 Refills 06/21/25 Aspirin (Aspirin) 81 Mg Tab.chew, 1 TAB PO DAILY for 30 Days, #30 TAB 0 Refills 06/21/25 Atorvastatin Calcium (LIPITOR) 10 Mg Tab, 10 MG PO HS, TAB 06/21/25 Discontinued Reported Medications Topiramate (Topiramate) 25 Mg Tablet, 4 TAB PO DAILY for 30 Days, #30 TAB 0 Refills 06/21/25 Continued Medications: Amlodipine Besylate (Amlodipine Besylate) 5 Mg Tablet 1 TAB PO DAILY for 30 Days, #30 TAB 0 Refills Aspirin (Aspirin) 81 Mg Tab.chew 1 TAB PO DAILY for 30 Days, #30 TAB 0 Refills Atorvastatin Calcium (Lipitor) 10 Mg Tab 10 MG PO HS, TAB Cholecalciferol (Vitamin D3) (Vitamin D3) 125 Mcg (5000 Unit) Capsule 1 CAP PO DAILY for 30 Days, #30 CAP 0 Refills [place] Oil/Riley-3 Fatty Acids (Sv [place] Oil 1,000 mg Softgel) 1,000 Mg-210 Mg Capsule 2 EACH PO DAILY, CAP Topiramate (Topiramate) 25 Mg Tablet 4 TAB PO DAILY for 30 Days, #30 TAB 0 Refills Time spent arranging discharge: 1-30 minutes ATTESTATION BY PHYSICIAN I have seen and examined the patient. I reviewed the documentation, medical decision making, and treatment plan as noted by the resident above. I agree with the findings and plan of care. Gerardo Clark IV, MD, ADIL SHAH QUADRI MD Jun 22, 2025 14:19
[2025-06-23] MEDS ORDERED: ASPIRIN 81MG CHEW TAB PO SCH (09:00)
[2025-06-23] MEDS ORDERED: amLODIPine 5 MG TAB PO SCH (09:00)
== END 2025-06-22 15:45 | disposition home or self-care (01) ==
LOC: EDH 14:59 → INTOOBSV 17:10 → EDHIP 17:10 → 2AH 20:49
PROVIDERS: ADMIT Internal Medicine; ATTEND Internal Medicine
DX: R00.8 Other abnormalities of heart beat (principal); I49.3 Ventricular premature depolarization; E78.00 Pure hypercholesterolemia, unspecified; I10 Essential (primary) hypertension; F19.90 Other psychoactive substance use, unspecified, uncomplicated; R00.1 Bradycardia, unspecified; G47.30 Sleep apnea, unspecified; Z79.899 Other long term (current) drug therapy; Z98.890 Other specified postprocedural states
CPT/HCPCS: 96374; 99285; 83036; 84443; 83735; 84484; 80048 ×2; 85025 ×2; 84439; 84481; 81003; 36415 ×2; 71045; 93005; 94660 ×2; 96376; 93306; 93356; J1308 ×2; G0378 ×2